=== PATIENT | female | born 1955 | race Two or more races ===

== ENCOUNTER 2017-08-26 22:24 | Inpatient (IN) | payer BC ==
[~2017-08-26] VITALS: Ht 142.2 cm; Wt 83.9 kg
[~2017-08-26 22:24] MED LIST: NAPROSYN500 M1 ORAL; NKM; NORCO 5-325 TA1 EACH ORAL
[2017-08-26] MEDS ORDERED: ALBUTEROL2.5 MG/3 M INH (22:35)
[2017-08-26] MEDS ORDERED: Aspirin Baby 81mg ORAL ONE (22:45)
[2017-08-26 23:37] LABS: BASOPHILS % (AUTO) 0.9 % (0.0-2.0); EOSINOPHILS % (AUTO) 1.6 % (0.0-3.0); HEMATOCRIT 41.8 % (37.0-47.0); LYMPHOCYTES % (AUTO) 21.8 % (20.0-45.0); MEAN CORPUSCULAR VOLUME 87 FL (80-99); MONOCYTES % (AUTO) 3.9 % (1.0-10.0); NEUTROPHILS % (AUTO) 71.8 % (45.0-75.0); PLATELET COUNT 233 K/UL (150-450); RED BLOOD COUNT 4.81 M/UL (4.20-5.40); RED CELL DISTRIBUTION WIDTH 12.7 % (11.6-14.8); WHITE BLOOD COUNT 11.1 K/UL (4.8-10.8)
[2017-08-26 23:52] LABS: ANION GAP 4 mmol/L (5-15); BLOOD UREA NITROGEN 24 mg/dL (7-18); CALCIUM 8.7 MG/DL (8.5-10.1); CARBON DIOXIDE 30 MMOL/L (21-32); CHLORIDE 108 MMOL/L (98-107); CREATININE 0.8 MG/DL (0.55-1.30); POTASSIUM 3.8 MMOL/L (3.5-5.1); SODIUM 142 MMOL/L (136-145)
[2017-08-26 23:55] VITALS: BP 113/60
[2017-08-27 00:07] LABS: ALANINE AMINOTRANSFERASE 49 U/L (12-78); ALBUMIN 3.6 G/DL (3.4-5.0); ALBUMIN/GLOBULIN RATIO 0.9 (1.0-2.7); ALKALINE PHOSPHATASE 79 U/L (46-116); ASPARTATE AMINO TRANSFERASE 38 U/L (15-37); BILIRUBIN,TOTAL 0.3 MG/DL (0.2-1.0); CKMB 1.1 NG/ML (0.0-3.6); CREATINE KINASE 75 U/L (26-308)
[2017-08-27 00:19] LABS: APPEARANCE,URINE CLEAR; BILIRUBIN, URINE NEGATIVE (NEGATIVE); COLOR,URINE PALE YELLOW; GLUCOSE, URINE (UA) NEGATIVE (NEGATIVE); KETONES,URINE NEGATIVE (NEGATIVE); NITRITE,URINE NEGATIVE (NEGATIVE); PH,URINE 6 (4.5-8.0); PROTEIN,URINE NEGATIVE (NEGATIVE); UROBILINOGEN,URINE NORMAL MG/DL (0.0-1.0)
[2017-08-27 00:32] LABS: LEUKOCYTE ESTERASE ,URINE 1+ (NEGATIVE)
[2017-08-27 01:23] VITALS: BP 101/51
--- NOTE | 2017-08-27 01:39 | Emergency Room Report ---
History of Present Illness General Chief Complaint: Dyspnea/Respdistress Source: Patient, Family Member Present Illness HPI This is a 62-year-old female who had a previous CAD and NSTEMI. She been out of her medication for 2-3 months because of primary care Dr. mcnulty. She presents with shortness of breath. Onset tonight. She been having cough for the last 3 days with increasing edema to lower extremity for last 3 days. No chest pain. Worse with exertion. Worse with lying flat. Also has a history of asthma and said her inhaler is not helping. Allergies: Coded Allergies: No Known Allergies (Unverified , 06/04/12) Patient History Past Medical History: see triage record, old chart reviewed, CAD Past Surgical History: other Pertinent Family History: none Social History: Denies: smoking Now: No Immunizations: other Reviewed Nursing Documentation: PMH: Agreed, PSxH: Agreed Nursing Documentation-PMH Hx Cardiac Problems: Yes Hx Asthma: Yes Hx Cancer: No Hx Gastrointestinal Problems: No Hx Neurological Problems: No Review of Systems Eye: Denies: eye pain, blurred vision ENT: Denies: ear pain, nose congestion, throat swelling Respiratory: Reports: shortness of breath, Denies: cough Cardiovascular: Denies: chest pain, palpitations Gastrointestinal: Denies: abdominal pain, diarrhea, nausea, vomiting Musculoskeletal: Denies: back pain, joint pain Skin: Denies: rash Neurological: Denies: headache, numbness Endocrine: Denies: increased thirst, increased urine Hematologic/Lymphatic: Denies: easy bruising All Other Systems: negative except mentioned in HPI Physical Exam Vital Signs Date Time Temp Pulse Resp B/P (MAP) Pulse Ox O2 Delivery O2 Flow Rate FiO2 08/26/17 22:28 92 22 194/77 92 Room Air 08/26/17 23:55 3.0 96 vitals with high blood pressure and hypoxia Sp02 EP Interpretation: abnormal General Appearance: mild distress Head: normocephalic, atraumatic Eyes: bilateral eye PERRL, bilateral eye EOMI ENT: hearing grossly normal, normal pharynx Neck: full range of motion, supple, no meningismus Respiratory: chest non-tender, respiratory distress, rales Cardiovascular #1: regular rate, rhythm, no murmur Gastrointestinal: normal bowel sounds, non tender, no mass, no organomegaly, no bruit, non-distended Musculoskeletal: back normal, gait/station normal, normal range of motion, swelling - 1+ pitting edema Neurologic: alert, oriented x3 Psychiatric: mood/affect normal Skin: warm/dry Procedures Critical Care Time Critical Care Time Critical care is mandated in this patient who presented with respiratory distress secondary to chf. Patient require my urgent intervention to attenuate the risks of () which may lead to cardiovascular collapse and . Critical care time is 35 minutes excluding any reportable procedure. Critical care time included evaluation, multiple reevaluation, looking at old charts, interpreting laboratory and diagnostic data, discussing case with patient and family and consultants, and charting. Medical Decision Making Diagnostic Impression: Primary Impression: Acute exacerbation of CHF (congestive heart failure) Qualified Codes: I50.9 - Heart failure, unspecified Additional Impression: Respiratory distress ER Course Patient with respiratory distress secondary to new-onset CHF. Concerning for possible coronary event causing this. She diuresed well. Blood pressure stable. We'll admit for further workup. I discussed case with Dr. Robb who will admit. Lab Results Impression labs with elevated BNP EKG Diagnostic Results Rate: normal Rhythm: NSR ST Segments: no acute changes ASA given to the pt in ED: Yes Rhythm Strip Diag. Results Rhythm Strip Time: 01:38 EP Interpretation: yes Rate: 76 Rhythm: NSR, no PVC's, no ectopy Chest X-Ray Diagnostic Results Chest X-Ray Diagnostic Results : Chest X-Ray Ordered: Yes # of Views/Limited/Complete: 1 View Indication: Shortness of Breath EP Interpretation: Yes Interpretation: no consolidation, no effusion, no pneumothorax, other - CM with chf Impression: Other - chf Electronically Signed by: Santi Tijerina MD Last Vital Signs Date Time Temp Pulse Resp B/P (MAP) Pulse Ox O2 Delivery O2 Flow Rate FiO2 08/27/17 01:23 76 14 101/51 97 Nasal Cannula 3.0 08/26/17 23:55 96 Status: improved Disposition: ADMITTED INPATIENT Condition: Serious Referrals: NOT CHOSEN STEF/,REFERRING (PCP) SANTI TIJERINA M.D. Aug 27, 2017 01:39
[2017-08-27 02:22] VITALS: BP 116/49
[2017-08-27] MEDS ORDERED: Albuterol/Ipratropium 3ml neb HHN ONE (05:30)
[2017-08-27 08:00] VITALS: BP 106/52
[2017-08-27] MEDS ORDERED: Carvedilol 6.25mg Tab ORAL SCH (09:00)
[2017-08-27] MEDS ORDERED: Heparin 5000 units/ml inj SUBQ SCH (09:00)
[2017-08-27] MEDS: Aspirin Baby 81mg ORAL SCH (09:08)
--- NOTE | 2017-08-27 10:19 | Diagnostic Imaging Report ---
Indication: Shortness of breath Technique: One view of the chest Comparison: 01/04/2015 Findings: The heart is enlarged. There is mild generalized interstitial prominence which appears similar to the previous exam. No definite airspace consolidation. No definite effusions. Impression: Cardiomegaly Generalized interstitial prominence. This may be chronic or could represent mild interstitial edema. Correlate with clinical findings
[2017-08-27 10:44] LABS: ALANINE AMINOTRANSFERASE 53 U/L (12-78); ALBUMIN 3.9 G/DL (3.4-5.0); ALKALINE PHOSPHATASE 78 U/L (46-116); ANION GAP 9 mmol/L (5-15); ASPARTATE AMINO TRANSFERASE 32 U/L (15-37); BILIRUBIN,TOTAL 0.6 MG/DL (0.2-1.0); BLOOD UREA NITROGEN 20 mg/dL (7-18); CALCIUM 8.9 MG/DL (8.5-10.1); CARBON DIOXIDE 30 MMOL/L (21-32); CHLORIDE 102 MMOL/L (98-107); CREATININE 0.8 MG/DL (0.55-1.30); POTASSIUM 3.7 MMOL/L (3.5-5.1); SODIUM 141 MMOL/L (136-145)
[2017-08-27 12:00] VITALS: BP 107/49
[2017-08-27] MEDS ORDERED: cefTRIAXone 1 GM in D5W 55 ML IVPB SCH (15:00)
[2017-08-27] MEDS: Enoxaparin Sodium 300mg/3ml vial SUBQ SCH (15:20)
[2017-08-27] MEDS: Albuterol/Ipratropium 3ml neb HHN SCH ×2 (15:24→20:51)
[2017-08-27] MEDS: cefTRIAXone 1 GM in NS 55 ML IVPB SCH (15:30)
--- NOTE | 2017-08-27 15:51 | Cardiology Report ---
APPROVED REPORT EKG Measurement Heart [id number] Normal sinus rhythm with sinus arrhythmia Possible Inferior infarct, age undetermined Abnormal ECG
[2017-08-27 16:00] VITALS: BP 102/52
--- NOTE | 2017-08-27 16:07 | Cardiology Report ---
APPROVED REPORT EKG Measurement Heart [id number] Sinus rhythm with occasional premature ventricular complexes Nonspecific T wave abnormality Abnormal ECG
[2017-08-27] MEDS: Nitroglycerin 2% oint pkt TOPIC SCH (17:29)
[2017-08-27 20:00] VITALS: BP 114/56
[2017-08-27] MEDS: Carvedilol 6.25mg Tab ORAL SCH (21:00)
[2017-08-28] VITALS: BP 126/73
[2017-08-28] MEDS: Albuterol/Ipratropium 3ml neb HHN SCH ×7 (00:17→23:22)
[2017-08-28 04:00] VITALS: BP 105/63
[2017-08-28] MEDS: Nitroglycerin 2% oint pkt TOPIC SCH ×3 (06:00→17:21)
[2017-08-28] MEDS: Enoxaparin Sodium 300mg/3ml vial SUBQ SCH (06:00)
[2017-08-28 07:08] LABS: BASOPHILS % (AUTO) 1.1 % (0.0-2.0); HEMATOCRIT 39.3 % (37.0-47.0); HEMOGLOBIN 12.8 G/DL (12.0-16.0); LYMPHOCYTES % (AUTO) 9.3 % (20.0-45.0); MEAN CORPUSCULAR VOLUME 87 FL (80-99); MONOCYTES % (AUTO) 10.3 % (1.0-10.0); NEUTROPHILS % (AUTO) 79.3 % (45.0-75.0); PLATELET COUNT 186 K/UL (150-450); RED BLOOD COUNT 4.53 M/UL (4.20-5.40); RED CELL DISTRIBUTION WIDTH 12.6 % (11.6-14.8); WHITE BLOOD COUNT 5.6 K/UL (4.8-10.8)
[2017-08-28 08:00] VITALS: BP 122/74
[2017-08-28 08:00] LABS: ALANINE AMINOTRANSFERASE 47 U/L (12-78); ALBUMIN 3.5 G/DL (3.4-5.0); ALBUMIN/GLOBULIN RATIO 0.8 (1.0-2.7); ALKALINE PHOSPHATASE 67 U/L (46-116); ANION GAP 5 mmol/L (5-15); ASPARTATE AMINO TRANSFERASE 35 U/L (15-37); BILIRUBIN,TOTAL 0.6 MG/DL (0.2-1.0); BLOOD UREA NITROGEN 16 mg/dL (7-18); CALCIUM 8.8 MG/DL (8.5-10.1); CARBON DIOXIDE 32 MMOL/L (21-32); CHLORIDE 100 MMOL/L (98-107); CHOLESTEROL 139 MG/DL (< 200); CREATININE 0.8 MG/DL (0.55-1.30); HDL CHOLESTEROL 71 MG/DL (40-60); SODIUM 137 MMOL/L (136-145); TRIGLYCERIDES 57 MG/DL (30-150)
[2017-08-28] MEDS: Carvedilol 6.25mg Tab ORAL SCH ×2 (08:40→21:00)
[2017-08-28] MEDS: Aspirin Baby 81mg ORAL SCH (08:40)
--- NOTE | 2017-08-28 11:51 | Diagnostic Imaging Report ---
Indication: Shortness of breath Technique: 2 views of the chest Comparison: August 26, 2017 Findings: The heart is enlarged. There is equivocal minimal interstitial prominence and central bronchial wall thickening if real could indicate COPD changes versus acute interstitial edema. Difficult to compare to the prior study due to differences in degree of inspiration and the reconstruction algorithm is No focal airspace consolidation. No effusions. The bones are unremarkable Impression: Cardiomegaly Equivocal minimal interstitial disease, may indicate acute interstitial edema or COPD changes. Correlate with clinical findings
[2017-08-28 12:00] VITALS: BP 99/52
[2017-08-28] MEDS: cefTRIAXone 1 GM in NS 55 ML IVPB SCH (15:08)
[2017-08-28] MEDS ORDERED: NS 275ml ONE (15:29)
[2017-08-28] MEDS ORDERED: Tubing IV Secondary IV ONE (15:29)
[2017-08-28 16:00] VITALS: BP 98/53
[2017-08-28] MEDS ORDERED: Enoxaparin 80mg Inj SUBQ SCH (18:00)
[2017-08-28 20:00] VITALS: BP 102/55
--- NOTE | 2017-08-28 23:05 | History and Physical Report ---
DATE OF ADMISSION: 08/26/2017 REASON FOR ADMISSION: Chest pain and shortness of breath. HISTORY OF PRESENT ILLNESS: This is a female, age 62 with a prior history of myocardial infarction and coronary artery disease who presented to the emergency room with shortness of breath. She also has had several days of cough, congestion and increasing leg swelling. The patient has been out of cardiac medications for several months because of the change in her doctor. She has not had any symptoms however up until this last several days. According to her daughter, she has been told that she had a weak heart in the past. Following heart attack, she was treated medically and did not have any coronary interventions apparently. MEDICATIONS: At this time, none. ALLERGIES: None. FAMILY HISTORY: Noncontributory. SOCIAL HISTORY: Negative for smoking, alcohol, or substance abuse. REVIEW OF SYSTEMS: A 10-point review of systems performed all systems negative other than noted above. PHYSICAL EXAMINATION: VITAL SIGNS: Blood pressure 194/77, pulse 92, respiratory rate 22 and afebrile. HEENT: Conjunctivae pink. Oropharynx clear. NECK: Supple. Jugular venous pressure is slightly elevated. LUNGS: With coarse breath sounds and rhonchi. CARDIAC: Regular rhythm. Rapid rate. Normal S1 and S2 with a fourth heart sound. ABDOMEN: Soft and nontender. EXTREMITIES: With 1+ dependent edema. LABORATORY AND DIAGNOSTIC DATA: EKG, sinus rhythm with PVCs, nonspecific T-wave abnormality. White count 11 and hemoglobin 14. Potassium 3.8, BUN 24 and creatinine 0.8. Pro-natriuretic peptide is 1298. Troponin is 0.048. IMPRESSION: 1. Acute systolic and diastolic congestive heart failure. 2. Acute myocardial ischemia and possible kjz-OJ-udlfynama infarction. 3. Malignant hypertension. 4. Medication noncompliance. 5. Ischemic cardiomyopathy. PLAN: 1. Cardiac monitoring. 2. Diuresis. 3. . 4. Oral aspirin. 5. Serial troponin. 6. Beta blockade. 7. Echocardiogram. 8. Salt restriction. 9. Further assessment of coronary anatomy and coronary flow reserve will be considered based on clinical course. Ruben Robb M.D. DR: JONNIE JOB#: [id number] CC: [place]
--- NOTE | 2017-08-28 23:05 | Progress Note ---
DATE: 08/27/2017 CARDIOLOGY AND INTERNAL MEDICINE PROGRESS NOTE SUBJECTIVE: The patient has congestion, cough and shortness of breath. Today, she feels better, however overnight, she has diuresed over a liter. The patient had a fever, now 101.2. She denies any dysuria, abdominal pain, nausea, or vomiting. OBJECTIVE: VITAL SIGNS: Blood pressure is 107/49, pulse 83, respiratory rate 20, and temperature 101.7. Oxygen saturation on three liters 97%. HEENT: Oropharynx is clear. NECK: Supple. Jugular venous pressure is elevated. LUNGS: With bilateral rales, decreased from yesterday. CARDIAC: Regular rhythm and rate. Normal S1 and S2 with a fourth heart sound. ABDOMEN: Soft. EXTREMITIES: No edema. LABORATORY DATA: Pro-natriuretic peptide is increased over 5000. Troponin is now 0.3, has increased to 0.335. Potassium is 3.7. White count is pending. IMPRESSION: 1. Acute myocardial infarction. 2. Probable acute pulmonary infection. 3. Bronchitis versus pneumonia. 4. Acute on chronic diastolic and systolic congestive heart failure. 5. Ischemic cardiomyopathy. 6. History of myocardial infarction. PLAN: 1. Panculture. 2. Add empiric antibiotics and respiratory hygiene. 3. Advance beta-candy. 4. Continue diuresis. 5. Topical nitrates. 6. Oral aspirin and full anticoagulation at this time. 7. Review echocardiogram. The patient will likely need assessment of coronary anatomy or at least coronary flow reserve prior to transfer to higher level of care. Ruben Robb M.D. : Jace JOB#: [id number] CC:
[2017-08-29] VITALS: BP 108/70
--- NOTE | 2017-08-29 02:30 | Progress Note ---
DATE: 08/28/2017 INTERNAL MEDICINE AND CARDIOLOGY PROGRESS NOTE SUBJECTIVE: The patient has no chest pain, but is still congested with cough. OBJECTIVE: VITAL SIGNS: T-max 101.7, blood pressure 122/74, pulse 80, respirations 22, and oxygen saturation on three liters 97%. LUNGS: Coarse breath sounds. Scattered rhonchi. HEART: Regular rhythm and rate. Normal S1, S2. ABDOMEN: Soft. EXTREMITIES: No edema. DIAGNOSTIC AND LABORATORY DATA: Echocardiogram with normal ejection fraction. White count 5.6 and hemoglobin 12.8. Potassium 4, BUN 16, and creatinine 0.8. Troponin down to 0.202. Pro-natriuretic peptide 5100. LDL cholesterol is 66. Chest x-ray today reveals minimal interstitial disease, which may indicate edema versus chronic changes. IMPRESSION: 1. Acute myocardial infarction. 2. Acute on chronic diastolic congestive heart failure. 3. Acute bronchitis. 4. Hypertension. PLAN: 1. Diurese. 2. Discontinue full anticoagulation. 3. Start heparin for DVT prophylaxis. 4. Continue empiric antibiotics. 5. Respiratory hygiene. 6. Continue anti-platelet therapy and beta-blockers. 7. Noninvasive assessment of coronary flow reserve once respiratory parameters have stabilized. Ruben Robb M.D. DR: MICHAEL JOB#: [id number] CC:
[2017-08-29] MEDS: Albuterol/Ipratropium 3ml neb HHN SCH ×6 (03:37→23:10)
[2017-08-29 04:00] VITALS: BP 103/45
[2017-08-29 08:00] VITALS: BP 116/76
[2017-08-29] MEDS: Aspirin Baby 81mg ORAL SCH (09:05)
[2017-08-29] MEDS: Carvedilol 6.25mg Tab ORAL SCH ×2 (09:05→21:49)
[2017-08-29] MEDS: Heparin 5000 units/ml inj SUBQ SCH ×2 (09:08→21:53)
--- NOTE | 2017-08-29 10:59 | Cardiology Report ---
APPROVED REPORT EXAM: Two-dimensional and M-mode echocardiogram with Doppler and color Doppler. INDICATION Congestive Heart Failure M-Mode DIMENSIONS IVSd0.8 (0.7-1.1cm)Left Atrium (MM)4.3 (1.6-4.0cm) LVDd6.0 (3.5-5.6cm)Aortic Root2.9 (2.0-3.7cm) PWd0.9 (0.7-1.1cm)Aortic Cusp Exc.1.9 (1.5-2.0cm) LVDs4.8 (2.5-4.0cm) PWs1.2 cm Mild left ventricular enlargement. Global left ventricular hypokinesis. Left ventricular ejection fraction estimated to be 40-45 %. Mild left ventricular hypertrophy. Anterior Echo-free space, may be due to pericardial fat or effusion. Mild left atrial enlargement. Right atrial chamber sizes is within normal limits. Mild right ventricular enlargement. Focal aortic valve sclerosis with adequate cusp excursion. Thickened mitral valve leaflets with normal excursion. Mild mitral annulus and aortic root calcification. Normal pulmonic valve structure. Normal tricuspid valve structure. IVC is normal in size with physiological collapse. A color flow and spectral Doppler study was performed and revealed: Trace aortic insufficiency. Moderate mitral regurgitation. Mitral inflow indicates increased left atrial pressure, suggestive restrictive pattern (Grade III). Mild tricuspid regurgitation. Tricuspid systolic velocities suggests peak right ventricular systolic pressure of 52 mmHg, consistent with moderate pulmonary hypertension. No pulmonic regurgitation present.
[2017-08-29 12:00] VITALS: BP 102/53
[2017-08-29] MEDS: cefTRIAXone 1 GM in NS 55 ML IVPB SCH (15:02)
[2017-08-29 15:42] LABS: BASOPHILS % (AUTO) 1.3 % (0.0-2.0); EOSINOPHILS % (AUTO) 0.1 % (0.0-3.0); HEMATOCRIT 39.9 % (37.0-47.0); HEMOGLOBIN 13.3 G/DL (12.0-16.0); LYMPHOCYTES % (AUTO) 28.9 % (20.0-45.0); MEAN CORPUSCULAR VOLUME 85 FL (80-99); MONOCYTES % (AUTO) 13.7 % (1.0-10.0); PLATELET COUNT 195 K/UL (150-450); RED BLOOD COUNT 4.67 M/UL (4.20-5.40); WHITE BLOOD COUNT 3.8 K/UL (4.8-10.8)
[2017-08-29 15:55] VITALS: BP 100/52
[2017-08-29 16:04] LABS: ALANINE AMINOTRANSFERASE 42 U/L (12-78); ALBUMIN 3.5 G/DL (3.4-5.0); ALBUMIN/GLOBULIN RATIO 0.8 (1.0-2.7); ALKALINE PHOSPHATASE 64 U/L (46-116); ANION GAP 4 mmol/L (5-15); ASPARTATE AMINO TRANSFERASE 39 U/L (15-37); BILIRUBIN,TOTAL 0.4 MG/DL (0.2-1.0); BLOOD UREA NITROGEN 24 mg/dL (7-18); CALCIUM 8.7 MG/DL (8.5-10.1); CARBON DIOXIDE 31 MMOL/L (21-32); CHLORIDE 99 MMOL/L (98-107); CREATININE 0.9 MG/DL (0.55-1.30); POTASSIUM 4.6 MMOL/L (3.5-5.1); SODIUM 134 MMOL/L (136-145)
[2017-08-29] MEDS: Oseltamivir 75mg cap ORAL SCH (17:16)
[2017-08-29 20:00] VITALS: BP 104/64
--- NOTE | 2017-08-29 20:15 | Consultation ---
DATE OF CONSULTATION: 08/29/2017 INFECTIOUS DISEASE CONSULTATION CONSULTING PHYSICIAN: Mainor Arriaga M.D. This consultation is for coverage of Al Cantrell M.D. PRIMARY ATTENDING PHYSICIAN: Ruben Robb M.D. REASON FOR CONSULTATION: Fever, bronchitis. HISTORY OF PRESENT ILLNESS: The patient is a 62-year-old female admitted on 08/27/2017, from home with shortness of breath and chest pain. She had a couple of days of coughing, congestion, and has increased leg swelling. She has history of CHF and was out of medications for a couple of months because of change of the primary doctor. She did not have any symptoms until the past couple of days. After admission, the patient developed fever in the hospital with maximum temperature of 101.7 degrees. PAST MEDICAL HISTORY: CHF, asthma, coronary artery disease, and hypertension. MEDICATIONS: Getting heparin, carvedilol, ceftriaxone, albuterol with ipratropium inhaler, K-Dur, aspirin, and Lasix. ALLERGIES: No known drug allergies. SOCIAL HISTORY: No history of alcohol, drug abuse, or smoking. . REVIEW OF SYSTEMS: As history of present illness. PHYSICAL EXAMINATION: GENERAL APPEARANCE: Seems to be well developed, obese with BMI of 42.4. No acute distress. VITAL SIGNS: Pulse is 64, temperature 98.4 degrees, and blood pressure 116/76. HEAD AND NECK: Coffeen conjunctivae. HEART: Normal rate, regular. LUNGS: She has bilateral wheezing. ABDOMEN: Soft and nontender. EXTREMITIES: She has no edema at the time of examination. NEUROLOGIC: She is awake, alert, and oriented. LABORATORY AND DIAGNOSTIC DATA: WBC 5.6 coming from 11.1 at the time of admission, hemoglobin 12.8, hematocrit 39.3, and platelet is 186,000. Blood culture x2 so far are negative. Chest x-ray showed minimal interstitial disease, may indicate interstitial edema or COPD. IMPRESSION: 1. Fever. The patient may have chronic obstructive pulmonary disease or asthma exacerbation. 2. Elevated troponin, likely non-ST myocardial infarction. 3. Systolic and diastolic heart failure. 4. Hypertension. 5. Obesity. RECOMMENDATION: We will continue empirically with ceftriaxone. We will ask for influenza A and B test. We will try to obtain more information about the vaccination history. At the end of my exam, I thank Dr. Robb for involving me in the care of this patient. Mainor Arriaga M.D. DR: INÉS JOB#: [id number] CC: [place]
[2017-08-30] VITALS: BP 93/58
[2017-08-30] MEDS: Albuterol/Ipratropium 3ml neb HHN SCH ×6 (02:50→23:48)
[2017-08-30 04:00] VITALS: BP 112/57
[2017-08-30 08:00] VITALS: BP 101/56
[2017-08-30] MEDS: Carvedilol 6.25mg Tab ORAL SCH ×2 (09:00→21:00)
[2017-08-30] MEDS: Aspirin Baby 81mg ORAL SCH (09:22)
[2017-08-30] MEDS: Oseltamivir 75mg cap ORAL SCH ×2 (09:22→17:46)
[2017-08-30] MEDS: Heparin 5000 units/ml inj SUBQ SCH ×2 (09:24→22:19)
--- NOTE | 2017-08-30 11:00 | Progress Note ---
DATE: 08/29/2017 CARDIOLOGY PROGRESS NOTE SUBJECTIVE: The patient had a positive swab for influenza today. She was started on Tamiflu. She still has some cough and congestion, but feels better overall. OBJECTIVE: VITAL SIGNS: Blood pressure 104/64, heart rate 63, and respiratory rate 18. NECK: Supple. LUNGS: With coarse breath sounds. CARDIAC: Regular rhythm and rate. Normal S1, S2. ABDOMEN: Soft. EXTREMITIES: No edema. LABORATORY DATA: White count 3.8, hemoglobin 13.3. Potassium 4.6. Troponin down to 0.192. Pro-natriuretic peptide down to 2000. IMPRESSION: 1. Influenza. 2. Pneumonia. 3. Acute non-ST elevation myocardial infarction. 4. Acute on chronic diastolic congestive heart failure. 5. Hypertensive heart disease. PLAN: 1. Continue antiviral and antimicrobials. 2. Bronchodilators. 3. Respiratory hygiene. 4. Antihypertensives and antianginal therapy. 5. We will consider outpatient followup for exercise stress test once the infection has been cleared. Ruben Robb M.D. DR: RICHELLE JOB#: [id number] CC:
--- NOTE | 2017-08-30 11:00 | Infectious Diseases Prog Note ---
Assessment/Plan Assessment/Plan antibiotics : ceftriaxone, tamiflu A 1. influenza A URI 2. CHF 3. HTN P 1. continue ceftriaxone, tamiflu 2. will follow up cultures Subjective Constitutional: Denies: fever, chills Respiratory: Reports: shortness of breath, dry cough Gastrointestinal/Abdominal: Denies: nausea, vomiting, diarrhea Musculoskeletal: Denies: pain Allergies: Coded Allergies: No Known Allergies (Unverified , 06/04/12) Objective Vital Signs Last 24 Hour Vital Signs Date Time Temp Pulse Resp B/P (MAP) Pulse Ox O2 Delivery O2 Flow Rate FiO2 08/30/17 09:00 63 101/56 08/30/17 08:00 97.2 63 18 101/56 100 08/30/17 07:38 58 20 99 Nasal Cannula 3.0 32 08/30/17 07:27 56 20 98 Nasal Cannula 3.0 32 08/30/17 07:27 98 Nasal Cannula 3.0 32 08/30/17 07:27 Nasal Cannula 3.0 32 08/30/17 04:00 55 08/30/17 04:00 98.4 56 18 112/57 98 08/30/17 02:58 60 18 100 Nasal Cannula 3.0 32 08/30/17 02:49 58 18 98 Nasal Cannula 3.0 32 08/30/17 00:00 98.4 56 12 93/58 95 Nasal Cannula 3.0 08/30/17 00:00 64 08/29/17 23:19 63 18 100 Nasal Cannula 3.0 32 08/29/17 23:08 59 18 97 Nasal Cannula 3.0 32 08/29/17 21:49 63 104/64 08/29/17 20:00 100.6 63 22 104/64 95 Nasal Cannula 3.0 08/29/17 20:00 70 08/29/17 19:10 60 18 100 Nasal Cannula 3.0 32 08/29/17 19:06 96 Nasal Cannula 3.0 32 08/29/17 19:06 Nasal Cannula 3.0 32 08/29/17 19:03 65 18 97 Nasal Cannula 3.0 32 08/29/17 16:00 56 08/29/17 15:55 98.9 61 19 100/52 99 08/29/17 15:29 58 18 98 Nasal Cannula 3.0 32 08/29/17 15:29 58 18 99 Nasal Cannula 3.0 32 08/29/17 12:00 98.9 57 19 102/53 97 08/29/17 12:00 64 08/29/17 11:14 58 18 100 Nasal Cannula 3.0 32 08/29/17 11:13 56 18 99 Nasal Cannula 3.0 32 Height (Feet): 4 Height (Inches): 8.00 Weight (Pounds): 189 Respiratory/Chest: lungs clear Cardiovascular: normal rate, regular rhythm, no gallop/murmur Abdomen: soft, non tender Extremities: no edema Microbiology Date/Time Source Procedure Growth Status 08/27/17 14:35 Blood Blood Culture - Preliminary NO GROWTH AFTER 48 HOURS Resulted 08/27/17 14:35 Blood Blood Culture - Preliminary NO GROWTH AFTER 48 HOURS Resulted 08/29/17 14:20 Nasal Nares Influenza Types A,B Antigen ([facility]) - Final Complete 08/28/17 19:03 Sputum Gram Stain - Final Resulted 08/28/17 19:03 Sputum Sputum Culture - Preliminary NO GROWTH Resulted Laboratory Tests Test 08/29/17 14:45 White Blood Count 3.8 K/UL (4.8-10.8) L Red Blood Count 4.67 M/UL (4.20-5.40) Hemoglobin 13.3 G/DL (12.0-16.0) Hematocrit 39.9 % (37.0-47.0) Mean Corpuscular Volume 85 FL (80-99) Mean Corpuscular Hemoglobin 28.5 PG (27.0-31.0) Mean Corpuscular Hemoglobin Concent 33.5 G/DL (32.0-36.0) Red Cell Distribution Width 12.0 % (11.6-14.8) Platelet Count 195 K/UL (150-450) Mean Platelet Volume 9.6 FL (6.5-10.1) Neutrophils (%) (Auto) 56.0 % (45.0-75.0) Lymphocytes (%) (Auto) 28.9 % (20.0-45.0) Monocytes (%) (Auto) 13.7 % (1.0-10.0) H Eosinophils (%) (Auto) 0.1 % (0.0-3.0) Basophils (%) (Auto) 1.3 % (0.0-2.0) Sodium Level 134 MMOL/L (136-145) L Potassium Level 4.6 MMOL/L (3.5-5.1) Chloride Level 99 MMOL/L (98-107) Carbon Dioxide Level 31 MMOL/L (21-32) Anion Gap 4 mmol/L (5-15) L Blood Urea Nitrogen 24 mg/dL (7-18) H Creatinine 0.9 MG/DL (0.55-1.30) Estimat Glomerular Filtration Rate > 60 mL/min (>60) Glucose Level 107 MG/DL (74-106) H Calcium Level 8.7 MG/DL (8.5-10.1) Total Bilirubin 0.4 MG/DL (0.2-1.0) Aspartate Amino Transf (AST/SGOT) 39 U/L (15-37) H Alanine Aminotransferase (ALT/SGPT) 42 U/L (12-78) Alkaline Phosphatase 64 U/L (46-116) Troponin I 0.192 ng/mL (0.000-0.056) Pro-B-Type Natriuretic Peptide 2007 pg/mL (0-125) H Total Protein 7.9 G/DL (6.4-8.2) Albumin 3.5 G/DL (3.4-5.0) Globulin 4.4 g/dL Albumin/Globulin Ratio 0.8 (1.0-2.7) SCOTT SHELBY Aug 30, 2017 11:00
--- NOTE | 2017-08-30 11:37 | Diagnostic Imaging Report ---
APPROVED REPORT CPT Code: 54161 Present Symptoms Comments: SWELLING BILATERAL: Imaging reveals a patent deep venous system bilaterally. There is no evidence of thrombus within the femoral, popliteal or tibial segments. The greater saphenous veins are also within normal limits. Doppler indicates normal spontaneous flow within these segments.
[2017-08-30 12:00] VITALS: BP 103/57
[2017-08-30 16:00] VITALS: BP 98/52
[2017-08-30] MEDS: cefTRIAXone 1 GM in NS 55 ML IVPB SCH (16:04)
[2017-08-30 16:16] LABS: HEMATOCRIT 39.8 % (37.0-47.0); HEMOGLOBIN 13.5 G/DL (12.0-16.0); MEAN CORPUSCULAR VOLUME 85 FL (80-99); PLATELET COUNT 184 K/UL (150-450); RED BLOOD COUNT 4.69 M/UL (4.20-5.40); RED CELL DISTRIBUTION WIDTH 11.6 % (11.6-14.8); WHITE BLOOD COUNT 3.4 K/UL (4.8-10.8)
[2017-08-30 16:33] LABS: ALANINE AMINOTRANSFERASE 44 U/L (12-78); ALBUMIN 3.5 G/DL (3.4-5.0); ALBUMIN/GLOBULIN RATIO 0.8 (1.0-2.7); ALKALINE PHOSPHATASE 63 U/L (46-116); ANION GAP 8 mmol/L (5-15); ASPARTATE AMINO TRANSFERASE 38 U/L (15-37); BILIRUBIN,TOTAL 0.4 MG/DL (0.2-1.0); BLOOD UREA NITROGEN 19 mg/dL (7-18); CARBON DIOXIDE 30 MMOL/L (21-32); CHLORIDE 98 MMOL/L (98-107); CREATININE 0.8 MG/DL (0.55-1.30); POTASSIUM 4.5 MMOL/L (3.5-5.1); SODIUM 136 MMOL/L (136-145)
[2017-08-30 20:00] VITALS: BP 117/76
[2017-08-30] MEDS ORDERED: Lexiscan 0.4mg/5ml syringe IV ONE (22:45)
[2017-08-31] VITALS: BP 117/57
--- NOTE | 2017-08-31 03:00 | Progress Note ---
DATE: 08/31/2017 CARDIOLOGY PROGRESS NOTE SUBJECTIVE: The patient still has congestion and shortness of breath. No chest pain. Monitored rhythm, sinus with episodes of ventricular tachycardia noted above . OBJECTIVE: VITAL SIGNS: Blood pressure of 98/52, pulse 59, respirations 18, and oxygen saturation on 2 liters 96% and on room air 92%. NECK: Supple. LUNGS: With coarse breath sounds and rhonchi. CARDIAC: Regular rhythm and rate. Normal S1, S2. ABDOMEN: Soft. EXTREMITIES: No edema. LABORATORY DATA: White count 3.4, hemoglobin 13. Potassium 4.5, BUN 19, and creatinine 0.8. IMPRESSION: 1. Acute myocardial infarction. 2. Influenza. 3. Pneumonia. 4. Paroxysmal ventricular tachycardia. 5. Acute on chronic diastolic congestive heart failure with improvement clinically. PLAN: 1. Follow up chest x-ray. 2. Continue Tamiflu. 3. Empiric antimicrobials. 4. Respiratory hygiene. 5. Anti-failure and antianginal regimen including aspirin. 6. DVT prophylaxis. 7.Transfer for coronary angiography and possible PCI in view of complicated NSTEMI. Ruben Robb M.D. DR: SAVANNAH JOB#: [id number] CC: [place]
[2017-08-31] MEDS: Albuterol/Ipratropium 3ml neb HHN SCH ×5 (03:53→19:25)
[2017-08-31 04:00] VITALS: BP 129/62
[2017-08-31 07:48] LABS: BASOPHILS % (AUTO) 1.1 % (0.0-2.0); EOSINOPHILS % (AUTO) 0.8 % (0.0-3.0); HEMOGLOBIN 13.5 G/DL (12.0-16.0); MEAN CORPUSCULAR VOLUME 84 FL (80-99); NEUTROPHILS % (AUTO) 52.2 % (45.0-75.0); PLATELET COUNT 187 K/UL (150-450); RED BLOOD COUNT 4.66 M/UL (4.20-5.40); RED CELL DISTRIBUTION WIDTH 11.7 % (11.6-14.8); WHITE BLOOD COUNT 3.9 K/UL (4.8-10.8)
[2017-08-31 08:00] VITALS: BP 111/61
[2017-08-31 08:08] LABS: ALANINE AMINOTRANSFERASE 38 U/L (12-78); ALBUMIN 3.4 G/DL (3.4-5.0); ALBUMIN/GLOBULIN RATIO 0.8 (1.0-2.7); ALKALINE PHOSPHATASE 61 U/L (46-116); ANION GAP 7 mmol/L (5-15); ASPARTATE AMINO TRANSFERASE 41 U/L (15-37); BILIRUBIN,TOTAL 0.3 MG/DL (0.2-1.0); BLOOD UREA NITROGEN 16 mg/dL (7-18); CALCIUM 9.1 MG/DL (8.5-10.1); CARBON DIOXIDE 30 MMOL/L (21-32); CHLORIDE 98 MMOL/L (98-107); CREATININE 0.7 MG/DL (0.55-1.30); POTASSIUM 4.7 MMOL/L (3.5-5.1); SODIUM 135 MMOL/L (136-145)
[2017-08-31] MEDS: Aspirin Baby 81mg ORAL SCH (08:35)
[2017-08-31] MEDS: Oseltamivir 75mg cap ORAL SCH ×2 (08:36→17:30)
[2017-08-31] MEDS: Heparin 5000 units/ml inj SUBQ SCH ×2 (08:37→20:05)
[2017-08-31] MEDS: Carvedilol 6.25mg Tab ORAL SCH ×2 (09:00→20:03)
[2017-08-31 12:00] VITALS: BP 113/70
[2017-08-31] MEDS: cefTRIAXone 1 GM in NS 55 ML IVPB SCH (15:55)
[2017-08-31 16:00] VITALS: BP 107/64
[2017-08-31 20:03] VITALS: BP 113/69
--- NOTE | 2017-09-01 15:00 | Discharge Summary ---
Discharge Summary Hospital Course Date of Admission Aug 27, 2017 at 00:49 Date of Discharge Aug 31, 2017 at 22:49 Admitting Diagnosis CONGESTIVE HEART FAILURE HPI Leeann Jerry is a 62 year old female who was admitted on Aug 27, 2017 at 00: 49 for Congestive Heart Failure Hospital Course [id number] Discharge Discharge Disposition Patient was discharged to Acute Care Facility(02) Discharge Diagnoses: Chanell Hall NP Sep 01, 2017 15:00
--- NOTE | 2017-09-02 02:30 | Discharge Summary 2 SIG ---
DATE OF ADMISSION: 08/27/2017 DATE OF DISCHARGE: 08/31/2017 BRIEF HOSPITAL COURSE: The patient is a 62-year-old female with prior history of myocardial infarction and coronary artery disease, presented to ED with shortness of breath. She had several days of cough, congestion, and increasing leg swelling. She has been out of cardiac medications for several months. On evaluation at ED, blood work showed slight leukocytosis, 11.1. Initial troponin was 0.04 and proBNP was 1298. She had an EKG done that showed normal sinus rhythm with no acute changes. Chest x-ray showed cardiomegaly with findings of congestive heart failure. She was given diuresis and was admitted to telemetry for acute systolic and diastolic congestive heart failure with acute myocardial ischemia, possible [id number]-[id number] myocardial infarction. Cardiac troponins were monitored. She was continued on aspirin. She had an echocardiogram done that showed ejection fraction of 40 to 45% with global left ventricular hypokinesis, moderate pulmonary hypertension, and increased left atrial pressure. Venous duplex was negative for DVT. She was started on Lovenox subcutaneous and topical nitrates. LDL was 66. Second troponin was elevated to 0.335. She came back positive for influenza A and was started on Tamiflu. She was given bronchodilator. Lovenox was discontinued and was switched to heparin subcutaneous. She was eventually transferred to [facility] for a heart catheterization. FINAL DIAGNOSES: 1. Acute myocardial infarction. 2. Influenza A infection. 3. Pneumonia. 4. Acute on chronic diastolic congestive heart failure with improvement clinically. 5. Paroxysmal ventricular tachycardia. 6. Hypertensive heart disease. DISPOSITION: The patient was transferred to [facility] for heart catheterization. Ruben Robb M.D. I have been assigned to dictate discharge summary on this account and I was not involved in the patient's management. Chanell Hall N.P. DR: VALENTE JOB#: [id number] CC: [place]
== END 2017-08-31 22:49 | disposition short-term general hospital (02) | DRG 281 ==
LOC: EMR 22:45 → 2E 08-27 00:49 → EDBEDREQ 08-27 01:09 → 2E 08-27 03:30
DX: I11.0 Hypertensive heart disease with heart failure (principal); I21.4 Non-ST elevation (NSTEMI) myocardial infarction; Z68.41 Body mass index [BMI] 40.0-44.9, adult; I47.2 Ventricular tachycardia; I25.5 Ischemic cardiomyopathy; I50.41 Acute combined systolic (congestive) and diastolic (congestive) heart failure; J20.9 Acute bronchitis, unspecified; I25.10 Atherosclerotic heart disease of native coronary artery without angina pectoris; E66.9 Obesity, unspecified; J10.1 Influenza due to other identified influenza virus with other respiratory manifestations; I25.2 Old myocardial infarction; Z91.14 Patient's other noncompliance with medication regimen
CPT/HCPCS: 36415; 71045; 71046; 80053; 80061; 81003; 82550; 82553; 83880; 84443; 84484; 85007; 85025; 85610; 85730; 86710; 87040; 87070; 87205; 93005; 93306; 93970; 94640; 94664; 94760; 99291; J2785; J7620; J8499